=== PATIENT | female | born 1990 | race Caucasian/White ===

== ENCOUNTER 2019-06-21 16:39 | Emergency (ER) | payer BC ==
[2019-06-21] MEDS: Cyclobenzaprine 10 MG Tab PO ONE (17:13)
[2019-06-21] MEDS: Ketorolac 60 MG/2 ML SDV IM ONE (17:13)
--- NOTE | 2019-06-21 18:48 | EDM.PDOC ---
ED HPI GENERAL MEDICAL PROBLEM - General Chief Complaint: Back Pain or Injury Stated Complaint: BACK PAIN Time Seen by Provider: 06/21/19 16:55 Source of Information: Reports: Patient History Limitations: Reports: No Limitations - History of Present Illness INITIAL COMMENTS - FREE TEXT/NARRATIVE: Patient presented to the ED because of severe low back pain . The pain is sharp, 10/10 over the lumbar area, non radiating. She denies any N/V,urinary symptoms. She is having her menstrual cycle for the past 3 days. lower back Pain Score (Numeric/FACES): 4 - Related Data Allergies Allergy/AdvReac Type Severity Reaction Status Date / Time No Known Allergies Allergy Verified 06/21/19 16:51 Home Meds: Home Meds Cyclobenzaprine [Flexeril] 10 mg PO TID PRN #15 tab 06/21/19 [Rx] Ibuprofen 800 mg PO TID PRN #30 tablet 06/21/19 [Rx] Past Medical History [employer] History: Reports: Ectopic , Endometriosis, Other (See Below) Other [employer] History: pt states ectopic pg required laprascopic surgery Hematologic History: Reports: Anemia Social & Family History - Family History Family Medical History: Noncontributory - Tobacco Use Smoking Status *Q: Never Smoker - Caffeine Use Caffeine Use: Reports: Coffee - Recreational Drug Use Recreational Drug Use: No ED ROS GENERAL - Review of Systems Review Of Systems: See Below Constitutional: Reports: No Symptoms HEENT: Reports: No Symptoms Respiratory: Reports: No Symptoms Cardiovascular: Reports: No Symptoms Endocrine: Reports: No Symptoms GI/Abdominal: Reports: No Symptoms : Reports: No Symptoms Musculoskeletal: Reports: Back Pain Skin: Reports: No Symptoms Neurological: Reports: No Symptoms ED EXAM,LOWER BACK PAIN/INJURY - Physical Exam Exam: See Below Exam Limited By: No Limitations General Appearance: Alert, WD/WN, No Apparent Distress Ears: Normal External Exam, Normal Canal, Hearing Grossly Normal, Normal TMs Nose: Normal Inspection, Normal Mucosa, No Blood Throat/Mouth: Normal Inspection, Normal Lips, Normal Teeth, Normal Oropharynx Head: Atraumatic, Normocephalic Neck: Normal Inspection, Supple, Non-Tender, Full Range of Motion Respiratory/Chest: No Respiratory Distress, Lungs Clear, Normal Breath Sounds, No Accessory Muscle Use, Chest Non-Tender Cardiovascular: Normal Peripheral Pulses, Regular Rate, Rhythm, No Edema, No Gallop GI/Abdominal: Normal Bowel Sounds, Soft, Non-Tender, No Organomegaly, No Distention Back Exam: Normal Inspection, Full Range of Motion, Muscle Spasm, Paraspinal Tenderness Extremities: Normal Inspection Neurological: Alert, Normal Mood/Affect, Normal Dorsiflexion, CN II-XII Intact, Normal Plantar Flexion, Normal Gait, Normal Reflexes, Oriented x 3 Course - Vital Signs Text/Narrative:: labs reviwed,urine is bloody because of her monthly period toradol 60 mg IM x1,flexeril 10 mg po x1 and her pain did improved significantly upon discharge. Last Recorded V/S: Last Vital Signs Temp 36.6 C 06/21/19 16:49 Pulse 79 06/21/19 18:40 Resp 14 06/21/19 18:40 BP 128/78 06/21/19 18:40 Pulse Ox 100 06/21/19 18:40 - Orders/Labs/Meds Labs: Laboratory Tests 06/21/19 06/21/19 Range/Units 18:20 18:20 Urine Color Yellow (YELLOW) Urine Appearance Slightly cloudy (CLEAR) Urine pH 5.0 (5.0-6.5) Ur Specific [place] 1.025 (1.010-1.025) Urine Protein 100 H (NEGATIVE) mg/dL Urine Glucose (UA) Normal (NORMAL) mg/dL Urine Ketones 150 H (NEGATIVE) mg/dL Urine Occult Blood Large H (NEGATIVE) Urine Nitrite Negative (NEGATIVE) Urine Bilirubin Small H (NEGATIVE) Urine Urobilinogen Normal (NEGATIVE) mg/dL Ur Leukocyte Esterase Negative (NEGATIVE) Urine RBC 20-30 H (0-5) Urine WBC 5-10 H (0-5) Ur Squamous Epith Cells Moderate H (NS,R,O) Urine Bacteria Few H (NS) Urine Mucus Moderate H (NS) Urine HCG, Qual Negative (NEGATIVE) Meds: Medications Discontinued Medications Generic Name Dose Route Start Last Admin Trade Name Freq PRN Reason Stop Dose Admin Cyclobenzaprine HCl 10 mg 06/21/19 16:57 06/21/19 17:13 Flexeril PO 06/21/19 16:58 10 mg ONETIME ONE Administration Ketorolac Tromethamine 60 mg 06/21/19 16:57 06/21/19 17:13 Toradol IM 06/21/19 16:58 60 mg ONETIME ONE Administration Departure - Departure Time of Disposition: 18:45 Disposition: Home, Self-Care 01 Condition: Good Clinical Impression: Low back pain, Muscle strain - Discharge Information Prescriptions: Cyclobenzaprine [Flexeril] 10 mg PO TID PRN #15 tab PRN Reason: Spasms Ibuprofen 800 mg PO TID PRN #30 tablet PRN Reason: Pain Instructions: Acute Back Pain, Adult Referrals: Brandy Mclain NP [Primary Care Provider] - Forms: ED Department Discharge Additional Instructions: please read discharge instructions on low back pain and muscle strain apply ice or heat whichever you prefer take ibuprofen 800 mg with tylenol 1000 mg 3 times daily as needed for pain flexeril 10 mg 3 times daily as needed for muscle spasm follow up if symptoms persist/worsens
== END 2019-06-21 18:49 | disposition home or self-care (01) ==
LOC: FB.ED 16:39
DX: S39.012A Strain of muscle, fascia and tendon of lower back, initial encounter (principal); X58.XXXA Exposure to other specified factors, initial encounter
CPT/HCPCS: 81001; 81025; 96372; 99283; A9270; J1885

== ENCOUNTER 2024-12-13 20:56 | Emergency (ER) | payer BC, OTHER ==
[2024-12-13] MEDS ORDERED: Sodium Chloride 0.9% 10 ML Syringe FLUSH PRN (21:12)
[2024-12-13 21:29] LABS: BASOPHILS PERCENT AUTO 0.6 % (0.2-1.5); EOSINOPHILS ABSOLUTE AUTO 0.3 x10-3/uL (0.0-0.8); EOSINOPHILS PERCENT AUTO 4.5 % (0.6-8.1); HEMATOCRIT 37.8 % (34.2-48.2); HEMOGLOBIN 13.1 g/dL (11.4-15.5); LYMPHOCYTES ABSOLUTE AUTO 2.2 x10-3/uL (1.0-4.4); LYMPHOCYTES PERCENT AUTO 35.2 % (18.4-52.1); MEAN CORPUSCULAR HEMOGLOBIN 29.8 pg (23.9-33.9); MEAN CORPUSCULAR HGB CONC 34.6 g/dL (31.9-34.8); MEAN CORPUSCULAR VOLUME 86.2 fL (76.7-100.5); MEAN PLATELET VOLUME 7.6 fL (7.1-12.4); MONOCYTES ABSOLUTE AUTO 0.3 x10-3/uL (0.3-1.0); MONOCYTES PERCENT AUTO 5.4 % (4.4-15.7); NEUTROPHILS ABSOLUTE AUTO 3.4 x10-3/uL (1.5-6.3); NEUTROPHILS PERCENT AUTO 54.3 % (30.8-76.2); PLATELET COUNT,PLT 291 x10(3)uL (151-488); RED BLOOD CELL COUNT 4.39 x10(6)uL (3.60-5.20); RED CELL DISTRIBUTION WIDTH 13.1 % (12.3-16.5); WHITE BLOOD CELL COUNT,WBC 6.2 x10-3/uL (3.0-10.3)
[2024-12-13 21:31] LABS: BILIRUBIN,URINE NEGATIVE (NEGATIVE); GLUCOSE,URINE NORMAL (NORMAL); KETONES,URINE NEGATIVE (NEGATIVE); LEUKOCYTE ESTERASE,URINE NEGATIVE (NEGATIVE); NITRITE,URINE NEGATIVE (NEGATIVE); OCCULT BLOOD,URINE NEGATIVE (NEGATIVE); PROTEIN,URINE NEGATIVE (NEGATIVE); UROBILINOGEN,URINE NORMAL (NEGATIVE)
[2024-12-13 21:32] LABS: APPEARANCE,URINE CLEAR (CLEAR); COLOR,URINE YELLOW (YELLOW)
[2024-12-13 21:32] LABS: BLOOD UREA NITROGEN,BUN 11 mg/dL (7-18); BUN/CREATININE RATIO 13.8 (9-20); CALCIUM 8.6 mg/dL (8.6-10.2); CARBON DIOXIDE,CO2 26 mmol/L (21-32); CHLORIDE,CL 105 mmol/L (100-110); CREATININE 0.8 mg/dL (0.55-1.02); EST CRCL DRUG DOSING (CG) 98.18 mL/min; ESTIMATED GFR 100 mL/min (>60); GLUCOSE RANDOM 92 mg/dL (80-116); POTASSIUM,K 3.7 mmol/L (3.5-5.3); SODIUM,NA 137 mmol/L (135-145)
[2024-12-13 21:38] LABS: A/G RATIO 1.2; ALANINE AMINOTRANSFERASE,ALT 17 U/L (12-36); ALBUMIN 3.9 g/dL (3.5-5.2); ALKALINE PHOSPHATASE 84 IU/L (56-112); ASPARTATE AMNIOTRANSFERASE,AST 10 IU/L (5-25); BILIRUBIN TOTAL 0.6 mg/dL (0.1-1.3); PROTEIN TOTAL,TP 7.1 g/dL (6.0-8.0)
[2024-12-13] MEDS: Ondansetron 4 MG/2 ML SDV IVPUSH ONE (21:44)
[2024-12-13] MEDS: Sodium Chloride 0.9% 1,000 ML IV SCH (21:44)
[2024-12-13] MEDS: Ketorolac 30 MG/ML SDV IVPUSH ONE (21:44)
[2024-12-13] MEDS: Iopamidol 755 Mg/ML 100 ML Bottle IV SCH (22:19)
[2024-12-14] MEDS ORDERED: Naloxone 0.4 MG/ML SDV IVPUSH PRN (00:20)
[2024-12-14] MEDS: Morphine 4 MG/ML VIAL IVPUSH STA (00:26)
== END 2024-12-14 00:35 | disposition home or self-care (01) ==
LOC: FB.ED 20:56
DX: K52.9 Noninfective gastroenteritis and colitis, unspecified (principal); Z79.899 Other long term (current) drug therapy
CPT/HCPCS: 36415; 74177; 80053; 81003; 81025; 83690; 85025; 96374; 96375; 99284; J1885; J2270; J2405; J7030; Q9967

== ENCOUNTER 2025-02-08 07:14 | Day surgery (SDC) | payer OTHER ==
[~2025-02-08 07:14] MED LIST: Sodium Chloride 0.9% 10 ML Syringe FLUSH PRN
[2025-02-08] MEDS ORDERED: fentaNYL 100 MCG/2 ML SDV IV ONE (07:15)
[2025-02-08] MEDS ORDERED: Propofol 200 MG/20 ML SDV IV ONE (07:15)
[2025-02-08] MEDS ORDERED: Midazolam 1 MG/ML 2 ML SDV IV ONE (07:15)
[2025-02-08] MEDS: Lactated Ringers 1,000 ML IV SCH (08:00)
== END 2025-02-08 10:05 | disposition home or self-care (01) ==
LOC: FB.SDS 07:14
PROVIDERS: ATTEND Surgery
DX: K52.9 Noninfective gastroenteritis and colitis, unspecified (principal)
CPT/HCPCS: 00811; 88305; A9270-GY; J2250; J2704; J3010; J7120